=== PATIENT | male | born 1970 | race Caucasian/White ===

== ENCOUNTER 2016-08-31 08:52 | Emergency (ER) | payer MEDICAID, OTHER ==
[~2016-08-31] VITALS: Ht 180.3 cm; Wt 105.0 kg
[~2016-08-31 08:52] MED LIST: DULO1CAP2 PO; FENT50DI T-DERMAL; HYDR50TA94 PO; MIRTA15 PO; MISCMIS81; NICO21DI2 TD; OXYC30TA PO
[2016-08-31 08:54] VITALS: BP 128/70; PULSE 88; RESP 20; TEMP 98; O2SAT 97
[2016-08-31] MEDS ORDERED: DIAZ10TA PO (09:39)
[2016-08-31] MEDS ORDERED: PROZ40CA PO (09:39)
[2016-08-31 09:40] VITALS: BP 118/73; PULSE 82; RESP 17; O2SAT 98
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
[2016-08-31] MEDS ORDERED: IBUPROFEN 600 MG TAB PO ONE (10:00)
[2016-08-31 10:34] LABS: AUTOMATED NEUTROPHIL # 5.6 TH/MM3 (1.8-7.7); BASOPHIL % 0.5 % (0.0-2.0); EOSINOPHIL # 0.3 TH/MM3 (0-0.4); EOSINOPHIL % 4.1 % (0.0-4.0); HEMATOCRIT 36.6 % (39.0-51.0); HEMO FLAGS DIFF FINAL; LYMPH % 21.8 % (9.0-44.0); LYMPHOCYTE # 1.8 TH/MM3 (1.0-4.8); MEAN CELL VOLUME 77.6 FL (80.0-100.0); MEAN CORPUSCULAR HEMOGLOBIN 26.6 PG (27.0-34.0); MEAN CORPUSCULAR HGB CONC 34.2 % (32.0-36.0); MONO % 6.1 % (0.0-8.0); NEUT % 67.5 % (16.0-70.0); PLATELET COUNT 237 TH/MM3 (150-450); RED BLOOD COUNT 4.72 MIL/MM3 (4.50-5.90); RED CELL DISTRIBUTION WIDTH 13.3 % (11.6-17.2); WHITE BLOOD COUNT 8.2 TH/MM3 (4.0-11.0)
[2016-08-31 10:52] LABS: ALT (GPT) 21 U/L (12-78); ANION GAP 8 MEQ/L (5-15); AST (GOT) 25 U/L (15-37); BICARBONATE 27.1 MEQ/L (21.0-32.0); BLOOD UREA NITROGEN 8 MG/DL (7-18); CHLORIDE 101 MEQ/L (98-107); GLOMERULAR FILTRATION RATE 70 ML/MIN (>89); POTASSIUM 3.8 MEQ/L (3.5-5.1); SODIUM (NA) 136 MEQ/L (136-145)
[2016-08-31 10:55] LABS: ALKALINE PHOSPHATASE 71 U/L (45-117); TOTAL BILIRUBIN ADULT 0.3 MG/DL (0.2-1.0)
--- NOTE | 2016-08-31 11:05 | RADRPT ---
EXAM DATE/TIME: 08/31/2016 10:48 [facility] COMPARISON: No previous studies available for comparison. INDICATIONS : Pain without trauma. MEDICAL HISTORY : Degenerative disk disease. SURGICAL HISTORY : None. ENCOUNTER: Initial ACUITY: 3 months PAIN SCORE: 7/10 LOCATION: Lumbar spine. FINDINGS: There are five non-rib bearing vertebral bodies. The vertebral bodies are in normal alignment withou t evidence of subluxation or scoliosis. The disc spaces are maintained. Minimal anterior marginal o steophytes are seen at the L4-5 level. The posterior elements are intact without evidence of spondylo lysis. The pedicles are intact. Bony mineralization is normal. No fracture is identified. CONCLUSION: No acute disease. Mauro Engle MD on August 31, 2016 at 11:02 Board Certified Radiologist. This report was verified electronically.
[2016-08-31] MEDS ORDERED: CYCLOBENZAPRINE HCL 10 MG TAB PO ONE (13:00)
[2016-08-31 15:21] VITALS: BP 117/76; TEMP 98.8; O2SAT 98
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
== END 2016-08-31 18:03 | disposition home or self-care (01) ==
LOC: NEPC 08:52 → NEPJ 18:03
DX: R45.851 Suicidal ideations (principal); G89.29 Other chronic pain; M54.5 Low back pain; Z72.0 Tobacco use
CPT/HCPCS: 72110; 80053; 80307; 85025; 99285